=== PATIENT | female | born 1995 | race American Indian/Alaskan Native ===

== ENCOUNTER 2024-04-11 12:49 | Emergency (ER) | payer BC, SELFPAY ==
--- NOTE | 2024-04-11 13:03 | XR_ITS ---
Examination: Foot, right, 3 views Technique: AP, oblique, lateral views foot, 3 views Date and time of exam: April 11, 2024 1328 hours INDICATIONS: Injury to the foot today with toe pain FINDINGS: Mild irregularity at the base of the middle phalanx fourth digit No dislocation No foreign body IMPRESSION: Recommend follow-up coned views fourth digit to exclude nondisplaced fracture middle phalanx fourth digit
[2024-04-11 13:07] VITALS: PULSE 83; RESP 18; O2SAT 99
[2024-04-11 13:10] VITALS: BP 150/100; PULSE 63; RESP 20; TEMP 36.7; O2SAT 98
[2024-04-11 13:13] VITALS: BP 124/84; PULSE 60; RESP 20; TEMP 36.9; O2SAT 98; BMI 43.9
[2024-04-11] MEDS: KETOROLAC INJ 30 MG/ML VIAL IVP (13:20)
[2024-04-11] MEDS: LIDOCAINE 5% 1 PATCH TOP (13:20)
--- NOTE | 2024-04-11 13:22 | EDNOTE_ITS ---
Lower Extremity Injury RME/HPI General Chief Complaint: Ankle/Foot Injury Stated Complaint: TOE PAIN Time Seen by Provider: 04/11/24 13:01 Arrival date/time: 04/11/24 12:49 RME / HPI RME / HPI Narrative: This section includes all my notes and documentations, including HPI, PE, MDM, Procedure Notes, and PLAN. Mateusz North MD HPI: 28 year old female with no significant past medical history presents to the ED BIB from home for evaluation of right foot pain following an injury earlier today. She reports that while in a hurry to leave her home, she stubbed her right foot and toes on a wall. The injury was immediately followed by a cracking sensation and sharp pain, primarily localized to the 4th toe. The pain was severe initially but has since been partially alleviated by the administration of 100 mcg of Fentanyl by EMS en route. She denies any other injuries, numbness, tingling, or weakness in the affected area. No other complaints are reported. ROS: All negative except as documented in HPI. Physical Exam: General:? Alert and oriented.??In severe pain. Eyes:? Conjunctivae and lids clear.?? ENT:? No nasal congestion.?? Neck:? Supple.?? Lungs:? No respiratory distress.?? Skin:? Warm and dry.?? Neuro:? Alert and oriented X 3. Right Foot: Distal foot, including the toes, remarkable for tenderness and edema and ecchymoses. I reviewed EMS notes. My interpretation of the right foot x-rays is no acute fracture. At this point, diagnoses include right foot contusion. Treatment here included Toradol and lidocaine patch and postop shoe and crutches. Recommended a trial of conservative treatment. Discharge Instructions from Dr. North printed for you: 1. Your right foot x-rays today didn't show obvious broken bone. 2. For rest needed to heal, wear the postop shoe and no weightbearing using the crutches and elevate above the waist level for 3 days. Then as needed. 3. Apply ice for 20 minutes every 2-3 hours today and tomorrow. 4. Ibuprofen 800 mg every 6-8 hours today and tomorrow to decrease inflammation then as needed. 5. See a private doctor on 04/14/2024 for recheck. If not significantly better, ask to repeat the x-rays and/or order MRI imaging to make sure there is no broken bone or other serious injury. 6. Seek immediate medical care with intolerable pain or with any concerns. Mateusz North MD Related Data Previous Rx's ?Medication ?Instructions ?Recorded Vits W-Ca,Fe,Fa(<1MG) 1 tab PO QDAY #30 tabs 08/02/15 () ferrous sulfate 325 mg (65 mg 325 mg PO BIDWM #60 tabs 08/02/15 iron) tablet,delayed release Hydrocodone/Acetaminophen * (NORCO 1 tab PO Q4H PRN ABDOMINAL PAIN 01/31/17 5/325 *) #30 tabs Allergies Allergy/AdvReac Type Severity Reaction Status Date / Time NKA* Allergy Uncoded 02/01/17 08:31 Review of Systems Review of Systems Systems Reviewed: All systems reviewed, normal except as documented ED Exam Narrative Physical exam: As noted in HPI Course Quality Measures none Orders Category Date Time Status Crutches .NOW Care 04/11/24 14:29 Active Splint / Immobilizer STAT Care 04/11/24 14:30 Active XR foot comp RT min 3V Stat Exams 04/11/24 13:03 Completed Ketorolac Inj [Toradol Inj] Med 04/11/24 13:04 Discontinued 30 mg IVP X1 ONE Lidocaine 5% Patch Med 04/11/24 13:04 Discontinued 1 patch TOP X1 ONE Vital Signs Vital signs: Vital Signs Temperature 98.0 F 04/11/24 13:10 Pulse Rate 63 04/11/24 13:10 Respiratory Rate 20 04/11/24 13:10 Blood Pressure 150/100 H 04/11/24 13:10 Pulse Oximetry (%) 98 04/11/24 13:10 Oxygen Delivery Method Room Air 04/11/24 13:10 Pulse ox is 98% on room air which is adequate. Extremity Injury, Lower MDM Narrative MDM Narrative:: Danette Courtney am scribing for and in the presence of Dr. North. Patient data External records reviewed:: [facility] previous records (Patients last records here are from child delivery in 2017 ) and EMS form Clinical information provided by:: patient and EMS Social determinants that could affect healthcare access:: none Patient has the following chronic illnesses:: No stated chronic medical hx How is presenting disease/condition affected by chronic disease/condition?: no chronic disease Evaluation data The following diagnostics were reviewed and interpreted by me:: radiology exam(s) Lab and/or radiology exams considered but not ordered:: None Interpretation Summary: Ordering Physician: Mateusz North MD Date of Service: 04/11/24 Procedure(s): XR foot comp RT min 3V Accession Number(s): [id number] cc: Mateusz North MD; Moo Trevizo MD~ Examination: Foot, right, 3 views Technique: AP, oblique, lateral views foot, 3 views Date and time of exam: April 11, 2024 1328 hours INDICATIONS: Injury to the foot today with toe pain FINDINGS: Mild irregularity at the base of the middle phalanx fourth digit No dislocation No foreign body IMPRESSION: Recommend follow-up coned views fourth digit to exclude nondisplaced fracture middle phalanx fourth digit Dictated By: Moo Trevizo MD Signed By: <Electronically signed by Moo Trevizo MD in OV> 04/11/24 1409 Medications / Prescriptions Medications or Prescriptions considered but not ordered:: None Medication administrations:: Medication Administration History Discontinued Medications Ketorolac Tromethamine (Ketorolac Inj 30 Mg/Ml Vial) 30 mg IVP X1 ONE Stop: 04/11/24 13:05 Last Admin: 04/11/24 13:20 Dose: 30 mg Documented By: DESTIN Lidocaine (Lidocaine 5% 1 Patch) 1 patch TOP X1 ONE Stop: 04/11/24 13:05 Last Admin: 04/11/24 13:20 Dose: 1 patch Documented By: DESTIN Toradol and lidocaine patch Consultations Consultation(s) initiated? (list below): No Diagnosis Extremity Injury, Lower Differential Diagnosis: ankle sprain and strain, fractu re of toe, ankle fracture and other (Toe contusion) Most likely diagnosis given after review of the tests above:: Contusion of right foot Admission Indicated Admission indicated?: not indicated Explain why admission is indicated or not indicated:: Does not meet admission criteria Admission Request Was there a request for admission?: No Disposition Plan Disposition Plan: Discharge Discharge Attestation Discharge Attestation: The patient and all family members were given an opportunity to ask questions and understood the discharge instructions. Discharge instructions specifically effects, indications for sooner follow up or return to the emergency department, and the expected course of current diagnosis. Patient condition: Stable Discharge Plan Plan Patient Disposition: HOME (Self Care) Prescriptions/Referrals Prescriptions/Med Rec: No Action ferrous sulfate 325 MG tablet 325 mg PO BIDWM Qty: 60 1RF Vits W-Ca,Fe,Fa(<1MG) () 1 TAB tablet 1 tab PO QDAY Qty: 30 11RF Hydrocodone/Acetaminophen * (NORCO 5/325 *) 1 TAB tablet 1 tab PO Q4H PRN (Reason: ABDOMINAL PAIN) Qty: 30 0RF Problem List Clinical Impression: Contusion of right foot Patient/Caregiver Discharge Instructions Discharge Activity: activity as tolerated Education Materials: ED Foot Contusion Additional Instructions: Discharge Instructions from Dr. North printed for you: 1. Your right foot x-rays today didn't show obvious broken bone. 2. For rest needed to heal, wear the postop shoe and no weightbearing using the crutches and elevate above the waist level for 3 days. Then as needed. 3. Apply ice for 20 minutes every 2-3 hours today and tomorrow. 4. Ibuprofen 800 mg every 6-8 hours today and tomorrow to decrease inflammation then as needed. 5. See a private doctor on 04/14/2024 for recheck. If not significantly better, ask to repeat the x-rays and/or order MRI imaging to make sure there is no broken bone or other serious injury. 6. Seek immediate medical care with intolerable pain or with any concerns. Print Language: Divehi Stand Alone Forms: [employer] Award Info., Patient Portal Info Letter
== END 2024-04-11 15:44 | disposition home or self-care (01) ==
LOC: SERX 14:35
PROVIDERS: Emergency Provider Emergency Medicine
DX: S90.31XA Contusion of right foot, initial encounter (principal); W22.01XA Walked into wall, initial encounter
CPT/HCPCS: 73630; 96374; 99284; J1885